=== PATIENT | female | born 1995 | race Caucasian/White ===

== ENCOUNTER 2016-07-10 20:31 | Emergency (ER) | payer OTHER ==
[~2016-07-10] VITALS: Ht 170.2 cm; Wt 86.2 kg
--- NOTE | 2016-07-10 20:39 | ED.ADGEN ---
Adult General Chief Complaint Chief Complaint ".. I been sick a couple days.. really bad sore throat.. my relatives moved in.. they probably brought the sickness" HPI HPI Patient is a 21 year old female who presents with above hx and complaints of sore throat. Patient also complaints of fever and generalized malaise. Patient has not had any trouble but exposed to relatives that recently have had upper respiratory infections. Patient is normally healthy. No history immunosuppression. Patient has prosthetic 28 weeks and [facility] [place] [facility] . This is her second . Patient states nothing seems to make the sore throat better. Patient describes her throat pain as severe. Patient did not receive flu vaccination this season. Review of Systems Review of Systems Constitutional: History of fever or chills [] Eyes: Denies change in visual acuity, redness, or eye pain [] HENT: History of nasal congestion and a severe sore throat [] Respiratory: Denies cough or shortness of breath [] Cardiovascular: No additional information not addressed in HPI [] GI: Denies abdominal pain, nausea, vomiting, bloody stools or diarrhea [Pt.] gravid approximately 28 weeks : Denies dysuria or hematuria [] Musculoskeletal: Denies back pain or joint pain [] Integument: Denies rash or skin lesions [] Neurologic: Denies headache, focal weakness or sensory changes [] Endocrine: Denies polyuria or polydipsia [] Family History Family History Noncontributory Current Medications Current Medications Current Medications Medications (Trade) Dose Ordered Sig/David Start Time Stop Time Status Last Admin Dose Admin Diphenhydramine HCl (Benadryl Oral Elixir) 25 mg 1X ONCE 07/10/16 22:30 07/10/16 22:31 DC 07/10/16 22:28 25 MG Oxycodone/ Acetaminophen (Percocet 10/325) 1 tab 1X ONCE 07/10/16 22:30 07/10/16 22:31 DC 07/10/16 22:30 1 TAB Allergies Allergies Allergies Coded Allergies Type Severity Reaction Last Updated Verified Penicillins Allergy Unknown 07/10/16 Yes No known drug allergies Physical Exam Physical Exam Constitutional: Well developed, well nourished, moderately acute distress, non- toxic appearance. [] HENT: Normocephalic, atraumatic, bilateral external ears normal, oropharynx moist, ejected pharynx, no oral exudates, nose injected turbinates and congestion Eyes: PERRLA, EOMI, conjunctiva normal, no discharge. [] Neck: Normal range of motion, no tenderness, supple, no stridor. [] Cardiovascular:Heart rate regular rhythm, no murmur [] Lungs & Thorax: Bilateral breath sounds clear to auscultation [] Abdomen: Bowel sounds normal, soft, no tenderness, no masses, no pulsatile masses. Gravid. heart rate approximately 150-160. Skin: Warm, dry, no erythema, no rash. [] Back: No tenderness, no CVA tenderness. [] Extremities: No tenderness, no cyanosis, no clubbing, ROM intact, no edema. [] Neurologic: Alert and oriented X 3, normal motor function, normal sensory function, no focal deficits noted. [] Psychologic: Affect anxious, judgement normal, mood normal. [] Current Patient Data Vital Signs Vital Signs Date Time Temp Pulse Resp B/P Pulse Ox O2 Delivery O2 Flow Rate FiO2 07/10/16 22:06 105 20 90/45 98 Room Air 07/10/16 20:51 98.4 Lab Results Laboratory Tests Test 07/10/16 20:44 Influenza Type A (Rapid) Negative (NEGATIVE) Influenza Type B (Rapid) Negative (NEGATIVE) Group A Streptococcus Rapid Negative (NEGATIVE) EKG EKG [] Radiology/Procedures Radiology/Procedures [] Course & Med Decision Making Course & Med Decision Making Pertinent Labs and Imaging studies reviewed. (See chart for details). Gargle with Listerine 4 times a day or salt water, and as needed. May take Benadryl 25- 50 mg liquid for topical anesthesia of sore throat up to 4 times a day. May take Tylenol for discomfort and fever. Follow-up primary care. Return if any concerns. [] Final Impression Final Impression 1. Pharyngitis 2. Viral Syndrome Problems: Dragon Disclaimer Dragon Disclaimer This electronic medical record was generated, in whole or in part, using a voice recognition dictation system. LING POWELL MD Jul 10, 2016 20:39
[2016-07-10 21:47] LABS: INFLUENZA A PATIENT NEGATIVE (NEGATIVE); INFLUENZA B PATIENT NEGATIVE (NEGATIVE)
[2016-07-10 22:06] VITALS: BP 90/45
[2016-07-10] MEDS ORDERED: OXYCODONE/APAP 10/325 TABLET. PO ONE (22:30)
[2016-07-10] MEDS ORDERED: DIPHENHYDRAMINE ORAL ELIXIR 12.5 MG/5 ML. PO ONE (22:30)
== END 2016-07-10 22:33 | disposition home or self-care (01) ==
LOC: ER 20:31
DX: O26.893 Other specified pregnancy related conditions, third trimester (principal); B34.9 Viral infection, unspecified; J02.9 Acute pharyngitis, unspecified; Z88.0 Allergy status to penicillin
CPT/HCPCS: 87070; 87804; 87880; 99284

== ENCOUNTER 2016-11-06 21:39 | Emergency (ER) | payer OTHER ==
[~2016-11-06] VITALS: Ht 170.2 cm; Wt 86.2 kg
--- NOTE | 2016-11-06 22:36 | PHYS DOC ---
General Chief Complaint: FOOT INJURY PAIN Stated Complaint: RT FOOT INJURY Time Seen by MD: 21:46 Source: patient Exam Limitations: no limitations Problems: History of Present Illness Initial Comments Patient is a 21-year-old female who comes to the ED complaining of right foot injury. Patient states that yesterday she accidentally dropped a shower door onto the dorsum of her right foot. She suffered a few small abrasions of the dorsum of her foot but she felt they were minimal. She had severe pain initially at the top of her foot which she thought would've resolved by now. Today she has bruising at the top of her foot and is starting to develop stiffness at her third through fifth toes. She denies focal pain complaints, the discomfort is generalized over the dorsum of the foot. Her immunizations are up-to-date she denies numbness tingling weakness or radiating symptoms. Patient is able to walk by bearing the majority of her weight on the ball of her foot. She denies prior injury to this foot. No pre-arrival treatment symptoms are worse with movement and relieved by rest. Onset: yesterday Severity: moderate Pain/Injury Location: right foot, right 3rd toe, right 4th toe, right 5th toe Method of Injury: direct blow Modifying Factors: worse with jarring, worse with movement, improves with rest Allergies: Coded Allergies: Penicillins (Verified Allergy, Unknown, 07/10/16) Past Medical History Medical History: other (depression, Fe deficiency) Surgical History: noncontributory Social History Smoker: non-smoker Alcohol: none Drugs: none Review of Systems Constitutional: denies chills, denies fever Respiratory: denies cough, denies shortness of breath Cardiovascular: denies chest pain, denies palpitations Gastrointestinal: denies nausea, denies vomiting Genitourinary: denies dysuria, denies frequency Musculoskeletal: see HPI Skin: see HPI Psychiatric/Neurological: see HPI Physical Exam General Appearance: WD/WN, no apparent distress HEENT: normal ENT inspection Neck: full range of motion, supple Cardiovascular/Respiratory: normal peripheral pulses, no respiratory distress Ankles: bilateral ankle non-tender, bilateral ankle normal inspection, bilateral ankle normal range of motion, bilateral ankle no evidence of injury Feet: right foot other (there is bruising at the top of the right foot generally, mild swelling with associated swelling of the third through fifth toes. There are 2 small abrasions both of which are scabbed with no erythema formed bodies or discharge there is no tenderness associated with the abrasions. Patient has limited range of motion of the third through fifth toes but is able to flex and extend against resistance range of motion limitation is likely due to the mild swelling. Ligaments and tendons are intact the extremity is neurovascularly intact there is no nailbed trauma or deformity.) Neurologic/Tendon: normal sensation, normal motor functions, normal tendon functions, responds to pain, no evidence tendon injury Psychiatric: alert, oriented x 3 Skin: warm/dry (abrasions and bruising as described above) Orders, Labs, Meds Right foot: No acute osseous abnormality. Images interpreted by Dr. Santana. The patient neurovascularly intact after postop shoe placed. Departure Time of Disposition: 22:33 Disposition: 01 HOME, SELF-CARE Diagnosis: right foot contusion Condition: GOOD Patient Instructions: Contusion, [id number], RICE - Routine Care for Injuries , [id number] Additional Instructions: RICE, see handout. Keep foot elevated, try to limit standing and walking the next 48 hours. Wear post-op shoe as needed for symptoms when ambulating. OTC ibuprofen/tylenol as needed. A tylenol #3 start pack has been given to you for severe breakthru pain. Take one with food every 6 hours for severe breakthru pain. Follow up with your doctor in 5-7 days for recheck. Return to ED with new or changing symptoms. DANII SANTANA DO Nov 06, 2016 22:36
[2016-11-06 23:00] VITALS: BP 112/66
[2016-11-06] MEDS ORDERED: ACETAMINOPHEN/CODEINE 300/30MG 4TABLET STARTPACK. PO ONE (23:00)
--- NOTE | 2016-11-07 09:59 | RAD ---
Right foot radiograph 3 views 11/06/2016 Clinical indication: Right foot pain. Trauma to the right foot. Comparison: None. Findings: No acute fracture or traumatic malalignment. Joint spaces are maintained. There is a two mm calcific density at the lateral aspect of the distal great toe, may represent sequela of old injury. Impression: No acute osseous abnormality.
== END 2016-11-06 23:00 | disposition home or self-care (01) ==
LOC: ER 21:39
DX: S90.31XA Contusion of right foot, initial encounter (principal); Z88.0 Allergy status to penicillin; W20.8XXA Other cause of strike by thrown, projected or falling object, initial encounter; Y93.89 Activity, other specified; Y99.8 Other external cause status; Y92.89 Other specified places as the place of occurrence of the external cause
CPT/HCPCS: 73630; 99284-25

== ENCOUNTER 2017-10-16 01:24 | Emergency (ER) | payer OTHER ==
[~2017-10-16] VITALS: Ht 170.2 cm; Wt 86.2 kg
--- NOTE | 2017-10-16 02:16 | ED.ADGEN ---
Past History Past Medical History: No Pertinent History, UTI Past Surgical History: No Surgical History Alcohol Use: None Drug Use: None Adult General Chief Complaint Chief Complaint ". I am having bad abd. pain.. I don't know how long I ve been ... maybe a month.. this is my third... but I am spotting since ...... I cant get in the my doctor officer--[facility]... " HPI HPI Patient is a 22 year old female who presents with above hx and complaints of generalized abd. pain, vaginal bleeding and estimated 1 month gravid. Pt. reports past hx of 3 pregnancies.. Patient is reportedly O- blood type. No hx of discharge, trauma, bad food, specific ill contacts or travel. Pt. did eat chicken at 1900 hrs. his had 2 lifetime sex partners. No history of STDs. Does have history of frequent urinary tract infections. Review of Systems Review of Systems Constitutional: Denies fever or chills [] Eyes: Denies change in visual acuity, redness, or eye pain [] HENT: Denies nasal congestion or sore throat [] Respiratory: Denies cough or shortness of breath [] Cardiovascular: No additional information not addressed in HPI [] GI: Complains of generalized abdominal pain, nausea, . Denies vomiting, bloody stools or diarrhea [] : Denies dysuria or hematuria [] Musculoskeletal: Denies back pain or joint pain [] Integument: Denies rash or skin lesions [] Neurologic: Denies headache, focal weakness or sensory changes [] Endocrine: Denies polyuria or polydipsia [] All other systems were reviewed and found to be within normal limits, except as documented in this note. Family History Family History Noncontributory Current Medications Current Medications Current Medications Medications (Trade) Dose Ordered Sig/David Start Time Stop Time Status Last Admin Dose Admin Azithromycin (Zithromax) 1,000 mg 1X ONCE 10/16/17 05:30 10/16/17 05:31 DC 10/16/17 05:58 1,000 MG Ceftriaxone Sodium 1 gm/ Sodium Chloride 50 ml @ 100 mls/hr 1X ONCE 10/16/17 05:00 10/16/17 05:29 UNV Ceftriaxone Sodium (Rocephin) 1 gm ONCE ONCE 10/16/17 05:30 10/16/17 05:31 DC Lactated Ringer's 1,000 ml @ 1,000 mls/hr Q1H 10/16/17 02:45 10/16/17 04:08 DC 10/16/17 05:56 1,000 MLS/HR Metronidazole (Flagyl) 2,000 mg 1X ONCE 10/16/17 05:30 10/16/17 05:31 DC 10/16/17 05:57 2,000 MG Ondansetron HCl (Zofran Odt) 8 mg 1X ONCE 10/16/17 06:00 10/16/17 06:06 DC 10/16/17 05:57 8 MG Allergies Allergies Allergies Coded Allergies Type Severity Reaction Last Updated Verified Penicillins Allergy Intermediate 11/06/16 Yes Physical Exam Physical Exam Constitutional: Well developed, well nourished, moderate distress, non-toxic appearance. [] HENT: Normocephalic, atraumatic, bilateral external ears normal, oropharynx moist, no oral exudates, nose normal. [] Eyes: PERRLA, EOMI, conjunctiva normal, no discharge. [] Neck: Normal range of motion, no tenderness, supple, no stridor. [] Cardiovascular:Heart rate regular rhythm, no murmur [] Lungs & Thorax: Bilateral breath sounds clear to auscultation [] Abdomen: Bowel sounds normal, soft, and lies abdomen tenderness, no masses, no pulsatile masses. Distended and tympanic. Pelvic exam shows discharge with some cervical motion tenderness. There is some minimal spotting from os. There is some mild adnexal tenderness on the left. Skin: Warm, dry, no erythema, no rash. [] Back: No tenderness, no CVA tenderness. [] Extremities: No tenderness, no cyanosis, no clubbing, ROM intact, no edema. [] No psoas or obturator sign. Neurologic: Alert and oriented X 3, normal motor function, normal sensory function, no focal deficits noted. [] Psychologic: Affect normal, judgement normal, mood normal. [] Current Patient Data Vital Signs Vital Signs Date Time Temp Pulse Resp B/P (MAP) Pulse Ox O2 Delivery O2 Flow Rate FiO2 10/16/17 08:22 98 18 118/75 (89) 100 10/16/17 08:12 97.9 10/16/17 07:56 Room Air Lab Results Laboratory Tests Test 10/16/17 01:41 10/16/17 02:25 10/16/17 02:36 POC Urine HCG, Qualitative hcg positive (Negative) Urine Collection Type Void Urine Color Yellow Urine Clarity Hazy Urine pH 5.5 Urine Specific [place] 1.015 Urine Protein 30 mg/dl (NEG-TRACE) Urine Glucose (UA) Neg mg/dL (NEG) Urine Ketones (Stick) Neg mg/dL (NEG) Urine Blood Small (NEG) Urine Nitrite Neg (NEG) Urine Bilirubin Neg (NEG) Urine Urobilinogen Dipstick 0.2 mg/dL (0.2 mg/dL) Urine Leukocyte Esterase Large (NEG) Urine RBC Occ /HPF (0-2) Urine WBC >40 /HPF (0-4) Urine Squamous Epithelial Cells Few /LPF Urine Bacteria Mod /HPF (0-FEW) Urine Opiates Screen Neg (NEG) Urine Methadone Screen Neg (NEG) Urine Barbiturates Neg (NEG) Urine Phencyclidine Screen Neg (NEG) Urine Amphetamine/Methamphetamine Neg (NEG) Urine Benzodiazepines Screen Neg (NEG) Urine Cocaine Screen Neg (NEG) Urine Cannabinoids Screen Neg (NEG) Urine Ethyl Alcohol Neg (NEG) White Blood Count 12.1 x10^3/uL (4.0-11.0) H Red Blood Count 4.57 x10^6/uL (3.50-5.40) Hemoglobin 13.7 g/dL (12.0-15.5) Hematocrit 42.0 % (36.0-47.0) Mean Corpuscular Volume 92 fL (79-100) Mean Corpuscular Hemoglobin 30 pg (25-35) Mean Corpuscular Hemoglobin Concent 33 g/dL (31-37) Red Cell Distribution Width 13.9 % (11.5-14.5) Platelet Count 255 x10^3/uL (140-400) Neutrophils (%) (Auto) 71 % (31-73) Lymphocytes (%) (Auto) 18 % (24-48) L Monocytes (%) (Auto) 7 % (0-9) Eosinophils (%) (Auto) 5 % (0-3) H Basophils (%) (Auto) 1 % (0-3) Neutrophils # (Auto) 8.5 x10^3uL (1.8-7.7) H Lymphocytes # (Auto) 2.2 x10^3/uL (1.0-4.8) Monocytes # (Auto) 0.8 x10^3/uL (0.0-1.1) Eosinophils # (Auto) 0.6 x10^3/uL (0.0-0.7) Basophils # (Auto) 0.1 x10^3/uL (0.0-0.2) Prothrombin Time 9.9 SEC (9.4-11.4) Prothrombin Time INR 1.0 (0.9-1.1) PTT 26 SEC (23-33) Maternal Serum HCG Beta Subunit 189 mIU/mL (0-6) H Sodium Level 138 mmol/L (136-145) Potassium Level 3.5 mmol/L (3.5-5.1) Chloride Level 103 mmol/L (98-107) Carbon Dioxide Level 28 mmol/L (21-32) Anion Gap 7 (6-14) Blood Urea Nitrogen 15 mg/dL (7-20) Creatinine 1.0 mg/dL (0.6-1.0) Estimated GFR (Cockcroft-Gault) 69.3 Glucose Level 87 mg/dL (70-99) Calcium Level 9.0 mg/dL (8.5-10.1) Total Bilirubin 0.8 mg/dL (0.2-1.0) Direct Bilirubin 0.2 mg/dL (0.0-0.2) Aspartate Amino Transferase (AST) 17 U/L (15-37) Alanine Aminotransferase (ALT) 20 U/L (14-59) Alkaline Phosphatase 79 U/L (46-116) Total Protein 7.9 g/dL (6.4-8.2) Albumin 4.2 g/dL (3.4-5.0) Lipase 124 U/L (73-393) EKG EKG [] Radiology/Procedures Radiology/Procedures Ultrasound shows no intrauterine . Does have findings of 2 cysts in liver consistent with hemangiomas. No obvious ectopic appreciated.[] Course & Med Decision Making Course & Med Decision Making Pertinent Labs and Imaging studies reviewed. (See chart for details). Patient take Keflex daily times a day for 7 days. Follow-up cultures. Follow-up primary care. We will need continued pad counts. Repeat beta hCG in 3 days. Serial ultrasounds until ectopic can be ruled out. Follow-up primary care. Take vitamins. Clear fluid diet for the next 24 hours. Re-exam if no improvement. Will need Rhogram [] Final Impression Final Impression 1. Threaten [] 2. No IUP note on US- Early vs Ectopic 3. Liver Cyst- ? Hemangiomas 4. UTI 5. Cervicitis 6. O neg. blood type 7. Abd. Pain 8. BHCG = 189 Dragon Disclaimer Dragon Disclaimer This electronic medical record was generated, in whole or in part, using a voice recognition dictation system. LING POWELL MD Oct 16, 2017 02:16
[2017-10-16] MEDS ORDERED: IV RINGERS SOLUTION,LACTATED 1,000 ML IV SCH (02:45)
[2017-10-16 03:30] LABS: BASO # 0.1 x10^3/uL (0.0-0.2); BASO % 1 % (0-3); EOS # 0.6 x10^3/uL (0.0-0.7); EOS % 5 % (0-3); HEMOGLOBIN 13.7 g/dL (12.0-15.5); LYMPH # 2.2 x10^3/uL (1.0-4.8); LYMPH % 18 % (24-48); MEAN CORPUSCULAR HEMOGLOBIN 30 pg (25-35); MEAN CORPUSCULAR HGB CONC 33 g/dL (31-37); MEAN CORPUSCULAR VOLUME 92 fL (79-100); MONO # 0.8 x10^3/uL (0.0-1.1); MONO % 7 % (0-9); NEUT # 8.5 x10^3uL (1.8-7.7); NEUT % 71 % (31-73); PLATELET COUNT 255 x10^3/uL (140-400); RED BLOOD COUNT 4.57 x10^6/uL (3.50-5.40); RED CELL DISTRIBUTION WIDTH 13.9 % (11.5-14.5); WHITE BLOOD COUNT 12.1 x10^3/uL (4.0-11.0)
[2017-10-16 03:42] LABS: BARBITURATES NEG (NEG); BENZODIAZEPINES NEG (NEG); CANNABINOIDS NEG (NEG); COCAINE NEG (NEG); METHADONE NEG (NEG); OPIATES NEG (NEG); PHENCYCLIDINE NEG (NEG)
[2017-10-16 03:46] LABS: ALBUMIN 4.2 g/dL (3.4-5.0); DIRECT BILIRUBIN 0.2 mg/dL (0.0-0.2); GFR 69.3; POTASSIUM 3.5 mmol/L (3.5-5.1); TOTAL BILIRUBIN 0.8 mg/dL (0.2-1.0); TOTAL PROTEIN 7.9 g/dL (6.4-8.2)
[2017-10-16 03:48] LABS: AMPHETAMINE/METHAMPHETAMINE NEG (NEG)
[2017-10-16 04:11] LABS: BACTERIA,URINE MOD /HPF (0-FEW); BILIRUBIN,URINE NEG (NEG); CLARITY,URINE HAZY; COLOR,URINE YELLOW; GLUCOSE,URINE NEG (NEG); NITRITE,URINE NEG (NEG); RBC,URINE OCC /HPF (0-2); SQUAMOUS EPITHELIAL CELL,UR FEW /LPF; UROBILINOGEN,URINE 0.2 mg/dL (0.2 mg/dL); WBC,URINE >40 /HPF (0-4)
--- NOTE | 2017-10-16 04:36 | RAD ---
Complete abdomen ultrasound HISTORY: Abdominal pain. FINDINGS: Pancreas, proximal abdominal aorta and proximal IVC are normal. Normal liver echogenicity. There are 2 circumscribed hyperechoic nonshadowing lesions of the liver involving the right lobe the larger measuring 1.4 x 1.4 x 1.3 cm the smaller surrounding 1.1 x 1.3 x 1.4 cm. Normal directional blood flow the portal vein. Right renal length 10.3 cm. Left renal length 11.5 cm. No renal mass, calculus or hydronephrosis documented. No gallstones or inflammatory change of the gallbladder. No biliary ductal dilation the common bile duct has a diameter of 3 mm. Spleen length 10.3 cm. IMPRESSION: 2 round circumscribed nonshadowing hyperechoic lesions of the liver are present, while not definitive, these imaging features are most typical of hemangiomas. Hemangiomas are statistically most likely in a young patient of this age without risk factors for neoplasia. These could be managed conservatively with six-month follow-up sonography to document stability if desired. If the patient has risk factors more intensive management with MR imaging could be considered. Otherwise negative exam. Obstetric ultrasound less than 14 weeks HISTORY: female with positive urine test and pelvic pain. TECHNIQUE: Transabdominal and transvaginal transducers with grayscale and duplex Doppler sonography. FINDINGS: Transabdominal imaging demonstrates anteverted uterus measuring 8.8 x 3.7 x 5.6 cm. Endometrial thickness is 0.6 cm. Right ovary measures 3.0 x 1.7 x 2.9 cm, left ovary measures 2.9 x 4.4 x 1.9 cm. Transvaginal imaging demonstrates an anteverted uterus. Endometrium thickness is 0.9 cm. No gestational sac within the uterus documented. No endometrial fluid. Right ovary measures 3.0 x 2.8 x 2.0 cm with several subcentimeter follicles. Limited visualization of the left ovary due to bowel gas shadowing, it measures 3.8 x 2.2 x 2.9 cm with a few subsegmental follicles. There is intact bilateral ovarian blood flow. No ovarian or paraovarian masses to suggest ectopic . No pelvic fluid. IMPRESSION: Negative exam. No intrauterine is evident. Correlate with quantitative hCG. Clinical and sonographic follow-up is advised to document development of an intrauterine . Electronically signed by: Ameya Bradford MD (10/16/2017 4:33 AM) [id number]
[2017-10-16] MEDS ORDERED: CEPH-264 PO (05:10)
[2017-10-16] MEDS ORDERED: metroNIDAZOLE 500 MG TABLET PO ONE (05:30)
[2017-10-16] MEDS ORDERED: cefTRIAXone IV Push 1 GM VIAL. IVP ONE (05:30)
[2017-10-16] MEDS ORDERED: AZITHROMYCIN 250 MG TABLET. PO ONE (05:30)
[2017-10-16] MEDS ORDERED: ONDANSETRON ODT 4 MG TAB.RAPDIS ONE (05:51)
[2017-10-16] MEDS ORDERED: cefTRIAXone SODIUM 1 GM VIAL IV ONE (06:00)
[2017-10-16] MEDS ORDERED: ONDANSETRON ODT 4 MG TAB.RAPDIS PO ONE (06:00)
[2017-10-16 08:12] VITALS: BP 126/78
[2017-10-16 08:22] VITALS: BP 118/75
[2017-10-20 20:07] LABS: CHLAMYDIA PROBE Negative (Negative)
== END 2017-10-16 08:26 | disposition home or self-care (01) ==
LOC: ER 01:24
DX: O20.0 Threatened abortion (principal); Z3A.00 Weeks of gestation of pregnancy not specified; N39.0 Urinary tract infection, site not specified; N72 Inflammatory disease of cervix uteri; Z88.0 Allergy status to penicillin
CPT/HCPCS: 36415; 36430; 76700; 76801; 76817; 80048; 80076; 80307; 81001; 81025; 83690; 84443; 84702; 85025; 85610; 85730; 86592; 86703; 86705; 86709; 86803; 86850; 86900; 86901; 87086; 87340; 87491; 87591; 96374; 99285; J0456; J0696; J2791; J7120; Q0162; G0479

== ENCOUNTER → 2018-11-19 | Outpatient (CLI) | payer OTHER ==
[~2018-11-19] MED LIST: CEPH-264 PO
--- NOTE | 2018-11-19 12:23 | RAD ---
Ultrasound of the abdomen 11/19/2018 CLINICAL HISTORY: Probable hemangiomas seen within the liver on ultrasound of the abdomen. Follow-up imaging was recommended. TECHNIQUE: A real-time ultrasound examination of the abdomen was performed. Multiple images were obtained. FINDINGS: Comparison study is dated 10/16/2017. The gallbladder is well-distended. No gallstones are visualized. The gallbladder wall thickness is within normal limits. No pericholecystic fluid is seen. The common bile duct measures 3 mm in diameter which is within normal limits. The liver is normal in size measuring 14.3 cm in size. Two rounded hyperechoic lesions are seen involving the right lobe of the liver which measure 1.4 to 1.3 cm in greatest diameter. They are consistent with hemangiomas. They are unchanged. No new abnormality of the liver is seen. The spleen, visualized portions of pancreas and kidneys are within normal limits. The abdominal aorta tapers normally. The inferior vena cava is within normal limits. No free fluid is seen. IMPRESSION: Stable sonographic appearance of the hemangiomas involving the right lobe of the liver. Otherwise negative study. Electronically signed by: Farzad Chacon MD (11/19/2018 12:20 PM) [id number]
== END | disposition home or self-care (01) ==
LOC: US 08:50
PROVIDERS: ATTEND Advanced Practice Midwife
DX: K76.89 Other specified diseases of liver (principal)
CPT/HCPCS: 76700

== ENCOUNTER 2020-03-31 19:13 | Emergency (ER) | payer OTHER ==
[~2020-03-31] VITALS: Ht 170.2 cm; Wt 72.7 kg
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
[2020-03-31 19:25] VITALS: BP 137/88
[2020-03-31] MEDS ORDERED: BACITRACIN ZINC TOPICAL OINT PACKET. TP ONE (20:00)
[2020-03-31] MEDS ORDERED: ACETAMINOPHEN 500 MG TABLET PO ONE (20:00)
[2020-03-31] MEDS ORDERED: MORPHINE SULFATE 10 MG/ML SYRINGE. SQ ONE (20:00)
[2020-03-31] MEDS ORDERED: DIPH,PERTUSS(ACELL),TET VAC/PF 0.5 ML SYRINGE. VAX IM ONE (20:00)
[2020-03-31] MEDS ORDERED: KETOROLAC 60 MG/2 ML VIAL. IM ONE (20:00)
[2020-03-31] MEDS ORDERED: TETANUS AND DIPHTHERIA TOX/PF 0.5 ML VIAL. VAX IM ONE (20:00)
[2020-03-31] MEDS ORDERED: HYDR-1179 PO (20:24)
== END 2020-03-31 20:30 | disposition home or self-care (01) ==
LOC: ER 19:13
DX: T21.24XA Burn of second degree of lower back, initial encounter (principal); Z87.440 Personal history of urinary (tract) infections; Z88.0 Allergy status to penicillin; X11.8XXA Contact with other hot tap-water, initial encounter; Y93.89 Activity, other specified; Y92.89 Other specified places as the place of occurrence of the external cause; Y99.8 Other external cause status
CPT/HCPCS: 16020; 90471; 90715; 96372; 99284; J1885; J2270

== ENCOUNTER → 2020-10-25 | Outpatient (CLI) | payer OTHER ==
[~2020-10-25] MED LIST changes: +HYDR-1179 PO
--- NOTE | 2020-10-25 10:03 | RAD ---
INDICATION: Reason: PELVIC PRESSURE, URINARY FREQUENCY / Spl. Instructions: / History: COMPARISON: None. TECHNIQUE: Grayscale and color ultrasound images uterus and adnexa. FINDINGS: Uterus: 80 x 52 x 38 mm. Intrauterine device is seen. Right Ovary: 41 x 25 x 16 mm. Left Ovary: 36 x 17 x 16 mm. Vascular flow identified to bilateral ovaries. IMPRESSION: * Vascular flow is seen to the ovaries. * Intrauterine device is seen. Electronically signed by: Alejandro Huffman MD (10/25/2020 10:01 AM) [id number]
== END ==
LOC: US 09:05
PROVIDERS: ATTEND Family Medicine
DX: R10.2 Pelvic and perineal pain (principal); R35.0 Frequency of micturition
CPT/HCPCS: 76856

== ENCOUNTER 2021-02-25 19:58 | Emergency (ER) | payer OTHER ==
[~2021-02-25] VITALS: Ht 165.1 cm; Wt 73.0 kg
[2021-02-25 20:21] VITALS: BP 106/57
[2021-02-25] MEDS ORDERED: ACETAMINOPHEN 500 MG TABLET PO ONE (20:45)
[2021-02-25] MEDS ORDERED: IV NORMAL SALINE 1,000ML 1,000 ML IV ONE (20:45)
[2021-02-25] MEDS ORDERED: ONDANSETRON PF 4 MG/2 ML VIAL. IVP ONE (20:45)
--- NOTE | 2021-02-25 20:46 | PHYS DOC ---
Past History Past Medical History: No Pertinent History, UTI (CECY MENDES APRN) Past Surgical History: Other Additional Past Surgical Histo: LEEP procedure (CECY MENDES APRN) Alcohol Use: None Drug Use: None (CECY MENDES APRN) General Adult EDM: Chief Complaint: SHORTNESS OF BREATH HPI: HPI: Patient is a 25-year-old female who presents to the emergency department for shortness of breath, nonproductive cough, pain in her throat when she coughs and nausea and vomiting. Patient denies any fevers, sick exposures. Patient was seen at [facility] on Thursday and was diagnosed with COVID-19. She had a negative work-up including blood work and chest x-ray. Patient was discharged home with an albuterol inhaler. Patient reports that she has been using proair, Mucinex and Tylenol without any relief. Patient is noted to be mildly tachycardic in the ER but is not hypoxic. (CECY MENDES APRN) Review of Systems: Review of Systems: Constitutional: See HPI Eyes: Denies change in visual acuity HENT: See HPI Respiratory: See HPI Cardiovascular: Chest wall pain with coughing GI: See HPI (CECY MENDES APRN) Current Medications: Current Meds: Current Medications Medications (Trade) Dose Ordered Sig/David Start Time Stop Time Status Last Admin Dose Admin Acetaminophen (Tylenol) 1,000 mg 1X ONCE 02/25/21 20:45 02/25/21 20:46 UNV Ondansetron HCl (Zofran) 4 mg 1X ONCE 02/25/21 20:45 02/25/21 20:46 UNV Sodium Chloride 1,000 ml @ 1,000 mls/hr 1X ONCE 02/25/21 20:45 02/25/21 21:44 UNV (CECY MENDES APRN) Allergies: Allergies: Allergies Coded Allergies Type Severity Reaction Last Updated Verified Penicillins Allergy Intermediate 11/06/16 Yes (CECY MENDES APRN) Physical Exam: PE: Constitutional: Well developed, well nourished, no acute distress, non-toxic appearance. [] HENT: Normocephalic, atraumatic, bilateral external ears normal, oropharynx moist, no oral exudates, nose normal. [] Eyes: PERRL, EOMI, conjunctiva normal, no discharge. [] Neck: Normal range of motion, no stridor Cardiovascular:Heart rate regular rhythm, no murmur [] Lungs & Thorax: Bilateral breath sounds clear to auscultation [] Abdomen: Bowel sounds normal, soft, no tenderness, no masses, no pulsatile masses. [] Skin: Warm, dry, no erythema, no rash. [] Back: Normal range of motion Extremities: No tenderness, no cyanosis, no clubbing, ROM intact, no edema. [] Neurologic: Alert and oriented X 3, normal motor function, normal sensory function, no focal deficits noted. [] Psychologic: Affect normal, judgement normal, mood normal. [] (CECY MENDES APRN) Current Patient Data: Vital Signs: Vital Signs Date Time Temp Pulse Resp B/P (MAP) Pulse Ox O2 Delivery O2 Flow Rate FiO2 02/25/21 20:21 99.9 120 20 106/57 (73) 96 Room Air (CECY MENDES APRN) EKG: EKG: [] (CECY MENDES APRN) Radiology/Procedures: Radiology/Procedures: []PROCEDURE: PORTABLE CHEST 1V EXAMINATION: XR CHEST 1V CLINICAL HISTORY: covid +, reporting soa EXAM DATE/TIME: 02/25/2021 9:07 PM COMPARISON: 02/22/2021 FINDINGS: Lines, Tubes, and Devices: None. Cardiomediastinal Silhouette: Within normal limits. Lungs and Pleura: Subtle bilateral multifocal patchy opacities. Slight blunting of the right costophrenic angle suggested, cannot exclude small pleural eff usion. No pneumothorax. Bones and Soft Tissues: No acute osseous abnormality. IMPRESSION: Bilateral multifocal patchy airspace disease, compatible with viral pneumonia given reported history. Electronically signed by: Bereket Hamilton DO (02/25/2021 9:24 PM) [facility] DICTATED AND SIGNED BY: BEREKET HAMILTON DO DATE: 02/25/212122 CC: EMERGENCY,DEPARTMENT; CECY MENDES APRN; RICK PERRIN ~MTH0 0 (CECY MENDES APRN) Heart Score: C/O Chest Pain: No Risk Factors: Risk Factors: DM, Current or recent (<one month) smoker, HTN, HLP, family history of CAD, obesity. Risk Scores: Score 0 - 3: 2.5% MACE over next 6 weeks - Discharge Home Score 4 - 6: 20.3% MACE over next 6 weeks - Admit for Clinical Observation Score 7 - 10: 72.7% MACE over next 6 weeks - Early Invasive Strategies (CECY MENDES APRN) Course & Med Decision Making: Course & Med Decision Making Pertinent Labs and Imaging studies reviewed. (See chart for details) [] Patient presents to the emergency department for shortness of breath, nonproductive cough and nausea and vomiting. She has a nonproductive cough and pain in her throat and chest wall when she coughs. She has no chest pain at rest and without coughing. Patient was diagnosed with COVID-19 on Thursday. She had blood work including D-dimer, troponin, chest x-ray that were negative. Patient was noted to be tachycardic in the ER with a heart rate of 120. Her temperature is 99.9. Patient is not hypoxic. Patient be treated with IV fluids and nausea medication. She was given Tylenol for temperature. Chest x-ray was performed to rule out a new pneumonia. This showed bilateral pneumonia. Patient is not hypoxic and her heart rate has improved.. Patient advised to continue taking her ProAir inhaler. She will be discharged with antibiotic, susie Advised to take delsym otc for cough. Advised to increase fluids and rest. Advised to follow-up with her primary care provider tomorrow. I discussed with patient all findings and diagnostic testing as well as the need to follow-up with PCP for further evaluation and treatment or return to the ER if any new or worsening symptoms. Strict return precautions were also discussed at length. Patient voiced understanding and agreement with the plan. Patient is hemodynamically stable at the time of disposition. (CECY MENDES APRN) Dragon Disclaimer: Dragon Disclaimer: This electronic medical record was generated, in whole or in part, using a voice recognition dictation system. (CECY MENDES APRN) Attending Co-Sign The patient was seen and interviewed as well as examined at the bedside. The chart was reviewed. The case was discussed. Agree with the plan of care. (NAOMI CEDEÑO DO) Departure Departure: Impression: Primary Impression: Pneumonia due to COVID-19 virus Disposition: HOME / SELF CARE / HOMELESS Condition: GOOD Referrals: RICK PERRIN CNM (PCP) Patient Instructions: Cough, Adult Additional Instructions: You were seen in the emergency department today for cough, shortness of breath and nausea. Continue to use your ProAir inhaler as previously prescribed. Take Tylenol and/or ibuprofen for your pain or fevers. You can continue taking the Mucinex. You should take Delsym [id number] for your cough. Increase your fluids and rest. Your chest x-ray showed a pneumonia which will be treated with an antibiotic. Please start and finish the antibiotic completely. Follow- up with your primary care provider tomorrow regarding your ER visit. Return to the emergency department if you develop worsening of your shortness of breath, chest pain, blood in your stools or vomit, high fevers refractory to treatment, intractable nausea or vomiting, weakness, lethargy or any new or worsening concerns. You have been tested for or diagnosed with COVID-19. It is an infection caused by a new type of coronavirus. COVID-19 will cause cold-like or mild flu symptoms in most. It can cause more severe symptoms like problems breathing in some. There is no treatment for COVID-19. The body will clear the infection over time. Self-care will help to ease discomfort. Steps to Take: Self-Care Rest as needed. Healthy habits may help you feel better. Steps include: Choose healthy foods including fruits and vegetables. Drink water throughout the day. Get plenty of sleep each night. If you smoke, try to quit. It may ease breathing. Avoid alcohol. Keep Others Healthy The virus can spread to others. Droplets are released every time you sneeze or cough. The droplets can get into the mouth, nose, or eyes of people near you and lead to infection. To lower the chances of spreading COVID-19 to others: Stay at home until your doctor has said it is safe to leave. If you tested positive this will mean staying isolated until both of the following are true: At least 7 days have passed since the start of illness. You are free of fever for at least 72 hours without the use of medicine. During this time: - Avoid public areas, events, or transportation. Do not return to work or school until your doctor has said it is safe to do so. - Call ahead if you need to go to a medical center. Let them know you may have COVID-19. It will help them guide you where to go. They may also ask you to wear a facemask when you come to the office. - If you call for emergency medical services, let them know you may have COVID- 19. While at home: - Try to avoid close contact with others. Stay about 6 feet away. - If possible, spend most of your time in a separate room from others. - Use a face mask if you will be in close contact with others such as sharing a room or vehicle. - Have someone wipe down common surfaces in the home. Use household school social worker every day on areas like doorknobs, counters, or sinks. - Cough or sneeze into a tissue. Throw the tissue away right after use. If a tissue is not available, cough or sneeze into your elbow. - Wash your hands often. Wash them after sneezing or coughing. Use soap and water and wash for at least 20 seconds. Alcohol based hand fur dry cleaner can be used if soap and water is not available. - Do not prepare food for others. Avoid sharing personal items like forks, spoons, or toothbrushes. - Avoid close contact with pets while you are sick. There is no evidence of the virus passing to pets. This is a safety step until more is known about this virus. Isolation can be frustrating. Social interaction can help. Keep in touch with friends and family through phone and tech options. You can still interact with others in your home, just keep a safe distance of about 6 feet. Follow-up: Your doctors office will check in with you to see if there are any changes in your health. You may be asked to keep track of symptoms to share with them. They will also let you know when you are clear to be in public again. Problems to Look Out For: Contact your doctor if your recovery is not going as you expect. Get emergency care if you have problems such as: - Trouble breathing - Nonstop chest pain or pressure - Changes in awareness, confusion, or problems waking - Lips or face have bluish color - Worsening of symptoms If you think you have an emergency, call for emergency medical services right away. As [facility] Ondansetron (ONDANSETRON ODT) 4 Mg Tab.rapdis 1 TAB PO PRN Q6-8HRS for nausea for 7 Days, #28 TAB 0 Refills Prov: CECY MENDES APRN 02/25/21 Azithromycin (AZITHROMYCIN TABLET) 250 Mg Tablet 1 PKG PO UD for pneumonia for 5 Days, #6 TAB 0 Refills 2 the first day followed by 1 for days 2-5 Prov: CECY MENDES APRN 02/25/21 CECY MENDES APRN Feb 25, 2021 20:46 NAOMI CEDEÑO DO Feb 25, 2021 23:26
--- NOTE | 2021-02-25 21:27 | RAD ---
EXAMINATION: XR CHEST 1V CLINICAL HISTORY: covid +, reporting soa EXAM DATE/TIME: 02/25/2021 9:07 PM COMPARISON: 02/22/2021 FINDINGS: Lines, Tubes, and Devices: None. Cardiomediastinal Silhouette: Within normal limits. Lungs and Pleura: Subtle bilateral multifocal patchy opacities. Slight blunting of the right costophr enic angle suggested, cannot exclude small pleural effusion. No pneumothorax. Bones and Soft Tissues: No acute osseous abnormality. IMPRESSION: Bilateral multifocal patchy airspace disease, compatible with viral pneumonia given reported history. Electronically signed by: Bereket Alvarez DO (02/25/2021 9:24 PM) [facility]
[2021-02-25] MEDS ORDERED: AZIT250T6 PO (21:32)
[2021-02-25] MEDS ORDERED: ONDA4TAB12 PO (21:32)
[2021-02-25] MEDS ORDERED: AZITHROMYCIN 250 MG TABLET. PO ONE (21:45)
== END 2021-02-25 21:48 | disposition home or self-care (01) ==
LOC: ER 19:58
DX: U07.1 COVID-19 (principal); J12.82 Pneumonia due to coronavirus disease 2019; Z87.440 Personal history of urinary (tract) infections; Z88.0 Allergy status to penicillin
CPT/HCPCS: 71045; 96361; 96374; 99283; J2405; J7030